=== PATIENT | female | born 1935 | race Caucasian/White ===

== ENCOUNTER 2016-10-08 06:53 | Emergency (ER) | payer MEDICARE ==
[~2016-10-08] VITALS: Ht 165.1 cm; Wt 72.1 kg
[~2016-10-08 06:53] MED LIST: ADVAIR DISK28 PUFFS IN; BACLOFEN 10MG T10 MG PO; CHLORTHALIDONE50 MG PO; CIPRO 500MG TA500 MG PO; DEXAMETHASONE 4M4 MG OR; DSS250 MG PO; DUONEB 3 MG/3 ML3 ML IH; FIORICET 325 MG1 TAB PO; HYDROCHLOROTH12.5 M1 PO; LASIX40 MG PO; LIBRAX 5 MG-2.51 CAP PO; LISINOPRIL 5MG T5 MG PO; LISINOPRIL40 MG PO; MACROBID 100MG100 M1 PO; MACROBID 100MG100 MG PO; MEDROL 4MG. DOSE4 MG PO; MUCINEX600 M1 PO; NASACORT A55 MCG/Act NS; NEXIUM40 MG PO; PROAIR HFA0.09 MG/AC IH; PROMETHAZINE HC25 M1 PO; PROZAC 20MG CAP20 MG PO; PROZAC20 MG PO; PROZAC40 MG PO; SALMETEROL-F28 PUFF1 IN; ULTRACET 325 MG1 TAB PO; ZESTRIL 5MG TABL5 MG PO
--- NOTE | 2016-10-08 07:16 | Emergency Room Report ---
History of Present Illness Time Seen by MD Hutton Presenting Problem in Triage Pt arrived:Wheelchair Presenting Problem:BODY ACHES AND COUGH. 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 N Clinical Suspician of Infection? N Mental Status: 1 - Regular (Normal Baseline) Sepsis Risk:Low Sepsis Risk Have you (or family members/close friends) recently traveled outside the [place]? N If Yes, where/when: Have you had exposure to infectious disease within the past month? TB? Other? 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 fever or rash and no hemoptysis with no chest pain over the last few days Cardiac Chest Pain Chest pain indicative of cardiac No Timing/Duration this evening Severity moderate ALLERGIES Coded Allergies: Penicillins (Severe, [id number]/THROAT 12/09/15) codeine (NA-DIARRHEA 12/09/15) Home Medications Reported Medications Fluoxetine Hcl (Prozac) 40 MG PO DAILY Lisinopril (Zestril 5MG Tablet) 5 MG PO DAILY Albuterol Sulfate (Proair Hfa) 2 PUFFS IH QIDP PRN sob Esomeprazole Magnesium (Nexium 40MG Cap) 40 MG PO DAILY Salmeterol 50/Fluticasone 500 (Advair 500-50 Diskus) 1 PUFF IN BID History Medical History General CAD? No Angina: No PR: No Hypertension? Yes Hyperlipidemia? No CHF? No DVT? No PE? No COPD? No Asthma? Yes Anemia? No GERD? No Gastric ulcers? Yes GI Bleed? No Hernia? Yes Thyroid Problems? No Hypothyroidism? No CVA? No Seizures? No Diabetes? No Renal Insuffiency? Yes End Stage Renal Disease? No UTI? Yes Stones? No GB Disease: No Nephritic Syndrome? No Asplenia? No Hepatitis? No Sickle Cell Disease? No Arthritis? Yes Migraines? No Cataracts? No Glaucoma? No MRSA? No HIV? No TB? No Anxiety? No Depression? No Cancer? Yes Site: BREAST Immunization Hx DT/Tetanus > 10 Years Ago Flu 2012-FSN Pneumonia Received In Past Surgical Hx Previous Surgery?Y D & C BREAST SURGERY- L BRAIN TUMOR Family History Family Hx Diabetes No CAD No Hypertension Yes Hyperlipidemia No Cancer No TB No Social History Smoking Hx Smoker: Never Smoker Tobacco: No Are you/the child exposed to second-hand smoke: No Alcohol Alcohol: No Drugs none Review of Systems All Other Systems Reviewed and Negative Constitutional denies fever Eyes denies drainage ENT denies: ear pain, epistaxis, throat pain. Respiratory cough, denies shortness of breath, denies wheezing Cardiovascular denies chest pain, denies palpitations, denies syncope Gastrointestinal denies abdominal pain, denies diarrhea, denies vomiting Genitourinary denies: dysuria, frequency, hesitancy, hematuria. Musculoskeletal denies back pain, denies joint pain, denies neck pain Skin denies rash Psychiatric/Neurological denies headache, denies seizure Physical Exam Vital Signs Vital Signs Date Time Temp Pulse Resp B/P Pulse O2 O2 Flow FiO2 Ox Delivery Rate 10/08 0654 99.6 84 20 158/72 95 2 - WBC >12,000 or <4,000 or 10% bands? 2 or more SIRS Criteria Met? B/P:158/72 MAP:100 Creatinine >2.0? UA output<0.5ml/kg/hr for 2 hrs? Platelet count >100,000? Lactate >2.0mmol/1? INR >1.2 or PTT > than 60 sec? Evidence of Organ Dysfunction? Provider documented clinical suspician of infection? N Sepsis Criteria Count: 1 Sepsis Risk: Low Sepsis Risk General Appearance no apparent distress Eye Exam - bilateral eye PERRL, bilateral eye EOMI Ear, Nose, Throat normal ENT inspection Neck supple Respiratory Status No: respiratory distress. Lung Sounds bilateral: rhonchi. Cardiovascular regular rate/rhythm, systolic murmur Peripheral Pulses Pulses normal Yes Gastrointestinal soft Extremities no calf tenderness, pedal edema Strength 4 Upper Ext (L), 4 Upper Ext (R), 4 Lower Ext (L), 4 Lower Ext (R) Neurologic alert, drug and alcohol counsellor II-XII nml as tested, no motor/sensory deficits Reflexes Reflexes normal No Mental status normal mood/affect Skin intact Medical Decision Making LABS/Meds/Orders Pt receiving controlled substance in ED? No Results/Orders Laboratory Tests 10/08/16 0655: Influenza Type A Ag NOT DETECTED, Influenza Type B Ag NOT DETECTED Orders Procedure Date/time Status INFLUENZA A&B ANTIGENS 10/08 713 Complete XRAY/CT/US XRAY/CT/US XRAY chest XR interpretation by reviewed by me Xray Results abnormal Departure Departure Time of Disposition 08 Disposition DC Home or Self Care(routine) Clinical Impression Primary Impression: Bronchitis Condition STABLE Referrals Steve Angel MD (Family) Patient Instructions DI for Cough -- Adult Additional Instructions use meds and see pcp for follow up Discharge Counseling Counseled pt/family regarding diagnosis, test results, medications/RX, follow up needs Prescriptions Current Visit Scripts Prednisone (Prednisone 20MG) 20 MG PO BID #10 TAB BENZONATATE (Benzonatate) 100 MG PO TID #15 CAP Azithromycin (Zithromycin (Z-DEEDEE) 250MG Tab) 250 MG PO DAILY #6 TAB TAKE TWO (2) TABLETS ON DAY 1, THEN ONE (1) TABLET DAY #2 THRU #5 ED Critical Care Critical Care No at 0819
--- NOTE | 2016-10-08 07:16 | Emergency Room Report ---
History of Present Illness Time Seen by MD Hutton Presenting Problem in Triage Pt arrived:Wheelchair Presenting Problem:BODY ACHES AND COUGH. 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 N Clinical Suspician of Infection? N Mental Status: 1 - Regular (Normal Baseline) Sepsis Risk:Low Sepsis Risk Have you (or family members/close friends) recently traveled outside the [place]? N If Yes, where/when: Have you had exposure to infectious disease within the past month? TB? Other? Specify: Source patient, RN notes reviewed, family, old records Exam Limitations no limitations Comment first front ventilator cough and achey with no fever or rash and no hemoptysis with no chest pain over the last few days Cardiac Chest Pain Chest pain indicative of cardiac No Timing/Duration this evening Severity moderate ALLERGIES Coded Allergies: Penicillins (Severe, G-[id number]/THROAT 12/09/15) codeine (NA-DIARRHEA 12/09/15) Home Medications Reported Medications Fluoxetine Hcl (Prozac) 40 MG PO DAILY Lisinopril (Zestril 5MG Tablet) 5 MG PO DAILY Albuterol Sulfate (Proair Hfa) 2 PUFFS IH QIDP PRN sob Esomeprazole Magnesium (Nexium 40MG Cap) 40 MG PO DAILY Salmeterol 50/Fluticasone 500 (Advair 500-50 Diskus) 1 PUFF IN BID History Medical History General CAD? No Angina: No [place]: No Hypertension? Yes Hyperlipidemia? No CHF? No DVT? No PE? No COPD? No Asthma? Yes Anemia? No GERD? No Gastric ulcers? Yes GI Bleed? No Hernia? Yes Thyroid Problems? No Hypothyroidism? No CVA? No Seizures? No Diabetes? No Renal Insuffiency? Yes End Stage Renal Disease? No UTI? Yes Stones? No GB Disease: No Nephritic Syndrome? No Asplenia? No Hepatitis? No Sickle Cell Disease? No Arthritis? Yes Migraines? No Cataracts? No Glaucoma? No MRSA? No HIV? No TB? No Anxiety? No Depression? No Cancer? Yes Site: BREAST Immunization Hx DT/Tetanus > 10 Years Ago Flu 2012-FSN Pneumonia Received In Past Surgical Hx Previous Surgery?Y D & C BREAST SURGERY- L BRAIN TUMOR Family History Family Hx Diabetes No CAD No Hypertension Yes Hyperlipidemia No Cancer No TB No Social History Smoking Hx Smoker: Never Smoker Tobacco: No Are you/the child exposed to second-hand smoke: No Alcohol Alcohol: No Drugs none Review of Systems All Other Systems Reviewed and Negative Constitutional denies fever Eyes denies drainage ENT denies: ear pain, epistaxis, throat pain. Respiratory cough, denies shortness of breath, denies wheezing Cardiovascular denies chest pain, denies palpitations, denies syncope Gastrointestinal denies abdominal pain, denies diarrhea, denies vomiting Genitourinary denies: dysuria, frequency, hesitancy, hematuria. Musculoskeletal denies back pain, denies joint pain, denies neck pain Skin denies rash Psychiatric/Neurological denies headache, denies seizure Physical Exam Vital Signs Vital Signs Date Time Temp Pulse Resp B/P Pulse O2 O2 Flow FiO2 Ox Delivery Rate 10/08 0654 99.6 84 20 158/72 95 2 - WBC >12,000 or <4,000 or 10% bands? 2 or more SIRS Criteria Met? B/P:158/72 MAP:100 Creatinine >2.0? UA output<0.5ml/kg/hr for 2 hrs? Platelet count >100,000? Lactate >2.0mmol/1? INR >1.2 or PTT > than 60 sec? Evidence of Organ Dysfunction? Provider documented clinical suspician of infection? N Sepsis Criteria Count: 1 Sepsis Risk: Low Sepsis Risk General Appearance no apparent distress Eye Exam - bilateral eye PERRL, bilateral eye EOMI Ear, Nose, Throat normal ENT inspection Neck supple Respiratory Status No: respiratory distress. Lung Sounds bilateral: rhonchi. Cardiovascular regular rate/rhythm, systolic murmur Peripheral Pulses Pulses normal Yes Gastrointestinal soft Extremities no calf tenderness, pedal edema Strength 4 Upper Ext (L), 4 Upper Ext (R), 4 Lower Ext (L), 4 Lower Ext (R) Neurologic alert, attending psychiatrist II-XII nml as tested, no motor/sensory deficits Reflexes Reflexes normal No Mental status normal mood/affect Skin intact Medical Decision Making LABS/Meds/Orders Pt receiving controlled substance in ED? No Results/Orders Laboratory Tests 10/08/16 0655: Influenza Type A Ag NOT DETECTED, Influenza Type B Ag NOT DETECTED Orders Procedure Date/time Status INFLUENZA A&B ANTIGENS 10/08 713 Complete XRAY/CT/US XRAY/CT/US XRAY chest XR interpretation by reviewed by me Xray Results abnormal Departure Departure Time of Disposition 08 Disposition DC Home or Self Care(routine) Clinical Impression Primary Impression: Bronchitis Condition STABLE Referrals Steve Angel MD (Family) Patient Instructions DI for Cough -- Adult Additional Instructions use meds and see pcp for follow up Discharge Counseling Counseled pt/family regarding diagnosis, test results, medications/RX, follow up needs Prescriptions Current Visit Scripts Prednisone (Prednisone 20MG) 20 MG PO BID #10 TAB BENZONATATE (Benzonatate) 100 MG PO TID #15 CAP Azithromycin (Zithromycin (Z-DEEDEE) 250MG Tab) 250 MG PO DAILY #6 TAB TAKE TWO (2) TABLETS ON DAY 1, THEN ONE (1) TABLET DAY #2 THRU #5 ED Critical Care Critical Care No at 0819
--- NOTE | 2016-10-08 08:17 | RADIOLOGY REPORT PS360 ---
CHEST(2 VIEWS-NOT PORTABLE) COMPARISON: PA and lateral chest 12/01/2015 HISTORY: Shortness of breath, cough TECHNIQUE: PA and lateral chest FINDINGS: There are mild emphysematous changes seen with mild hyperexpansion lung alvarez and flattening of the hemidiaphragms. Again noted are multiple surgical clips left axilla. The lung alvarez are clear of active infiltrate, there may be minimal post inflammatory scarring at the right base. There is borderline cardio megaly but there is no significant pulmonary congestion. There is no pleural fluid. There is generalized osteopenia the thoracic spine by see no compression fracture. IMPRESSION: Mild cardio megaly and mild COPD, no acute chest pathology noted
[2016-10-08] MEDS ORDERED: PREDNISONE 20MG20 MG PO (08:19)
[2016-10-08] MEDS ORDERED: TESSALON PERLE100 MG PO (08:19)
[2016-10-08] MEDS ORDERED: ZITHROMAX Z PA250 MG PO (08:19)
[2016-10-08 09:07] VITALS: BP 178/84
== END 2016-10-08 09:14 | disposition home or self-care (01) ==
LOC: ER 06:53
DX: J20.9 Acute bronchitis, unspecified (principal); I10 Essential (primary) hypertension

== ENCOUNTER → 2017-02-12 | Outpatient (CLI) | payer MEDICARE ==
[~2017-02-12] MED LIST changes: +PREDNISONE 20MG20 MG PO; +TESSALON PERLE100 MG PO; +ZITHROMAX Z PA250 MG PO
[2017-02-12 14:31] LABS: HEMOGLOBIN 12.5 g/dL (12.2-16.2); LYMPH # 1.7 K/mm3 (0.7-4.5); LYMPH % 35.4 % (10-50.0)
[2017-02-12 14:38] LABS: URINE BILIRUBIN - DIPSTICK NEGATIVE (NEG); URINE BLOOD NEGATIVE (NEG)
[2017-02-12 14:55] LABS: BUN 29 mg/dL (7-18)
[2017-02-12 14:56] LABS: GFR (ESTIMATED) 29 ML/MIN (59-)
[2017-02-13 07:41] LABS: Creatinine, Urine 262.9 mg/dL (Not Estab.); Microalbumin, Urine 86.5 ug/mL (Not Estab.)
[2017-02-13 08:43] LABS: Vitamin D, 25-Hydroxy 39.4 ng/mL (30.0-100.0)
[2017-02-13 12:36] LABS: Calcium, Ionized 5.1 mg/dL (4.5-5.6)
== END ==
LOC: LAB 14:01
PROVIDERS: Internal Medicine Nephrology
DX: N18.3 Chronic kidney disease, stage 3 (moderate) (principal); R82.90 Unspecified abnormal findings in urine

== ENCOUNTER → 2017-05-10 | Outpatient (CLI) | payer MEDICARE ==
[~2017-05-10] MED LIST changes: +FUROSEMIDE 20MG20 MG FT; +ITCHY EYE5 ML OP; +MONTELUKAST SODI5 MG PO; +NEXIUM20 MG PO; +PROZAC40 M1 PO; +SPIRIVA RE2.5 MCG/Ac IH
== END ==
LOC: SL 20:38
DX: G47.33 Obstructive sleep apnea (adult) (pediatric) (principal)

== ENCOUNTER → 2017-05-11 | Outpatient (CLI) | payer MEDICARE ==
[2017-05-11 08:11] LABS: URINE BILIRUBIN - DIPSTICK NEGATIVE (NEG); URINE BLOOD NEGATIVE (NEG)
== END ==
LOC: LAB 07:13
PROVIDERS: Family Medicine
DX: G47.33 Obstructive sleep apnea (adult) (pediatric) (principal); Z01.812 Encounter for preprocedural laboratory examination; R82.90 Unspecified abnormal findings in urine

== ENCOUNTER 2017-07-23 12:54 | Emergency (ER) | payer MEDICARE ==
[~2017-07-23] VITALS: Ht 165.1 cm; Wt 68.0 kg
--- OUTSIDE RECORDS SUMMARY | 2017-07-23 13:43 | External Medical Summary Rpt | CCD ---
Author Author , RUSLAN MERCER Address Unknown Phone [email or web address] Immunization Name Date Rout CVX Reac Dose Comm Prov Is Faci e tion ent ider Refu lity Give sed n Infl 10-2 135 999 Hist D203 No D203 uenz 1-20 oric 45 45 a, 16 al High Info rmat Dose ion - Sour ce Unsp ecif ied
--- OUTSIDE RECORDS SUMMARY | 2017-07-23 13:43 | External Medical Summary Rpt | CCD ---
Author Author , RUSLAN MERCER Address Unknown Phone [email or web address] Immunization Name Date Rout CVX Reac Dose Comm Prov Is Faci e tion ent ider Refu lity Give sed n Infl 10-2 135 999 Hist D203 No D203 uenz 1-20 oric 45 45 a, 16 al High Info rmat Dose ion - Sour ce Unsp ecif ied
--- OUTSIDE RECORDS SUMMARY | 2017-07-23 13:43 | External Medical Summary Rpt | CCD ---
Author Author , RUSLAN Organization RUSLAN Address Unknown Phone [email or web address] Purpose Continuity of Care Document - 02-12-2017 through 2016 Problems Code Diagnosis DOS Provider Status D64.9 ANEMIA, UNSPECIFIED E86.0 DEHYDRATION G93.9 DISORDER OF BRAIN, UNSPECIFIED I63.9 CEREBRAL INFARCTION, UNSPECIFIED J20.9 ACUTE BRONCHITIS, UNSPECIFIED J40 BRONCHITIS, NOT SPECIFIED ACUTE OR CHRONIC J90 PLEURAL EFFUSION, NOT ELSEWHERE CLASSIFIED K57.90 DVRTCLOS OF INTEST, PART UNSP, W/O PERF OR ABSCESS W/O BLEED N28.9 DISORDER OF KIDNEY AND URETER, UNSPECIFIED R53.1 WEAKNESS S00.83XA CONTUSION OF OTHER PART OF HEAD, INITIAL ENCOUNTER S40.011A CONTUSION OF RIGHT SHOULDER, INITIAL ENCOUNTER T81.9XXA UNSPECIFIED COMPLICATIO N OF PROCEDURE, INITIAL ENCOUNTER V76.12 W19.XXXA UNSPECIFIED FALL, INITIAL ENCOUNTER Results Labs Lab Lab Date Result Refere Interp Status Commen Order Detail nces retati t Range on Urinalysis dipstick W Reflex Microscopic panel in Urine (05-11-2017 06:00) Bacteri 1+ O complet a 017 ed [Presen 06:00 ce] in Urine sedimen t by Light microsc opy Hyaline 10-20 NONE complet casts 017 ed [Presen 06:00 ce] in Urine sedimen t by Light microsc opy Mucus 2+ OCC complet [Presen 017 ed ce] in 06:00 Urine sedimen t by Light microsc opy Leukocy 10-20 O complet khalida 017 wbc/hpf ed [#/volu 06:00 me] in Urine Urinalysis dipstick W Reflex Microscopic panel in Urine (05-11-2017 06:00) Appeara CLEAR CLEAR complet nce of 017 ed Urine 06:00 Bilirub NEGATIV NEG complet in 017 E ed [Presen 06:00 ce] in Urine by Test strip Erythro NEGATIV NEG complet cytes 017 E ed [Presen 06:00 ce] in Urine Color YELLOW YELLOW complet of 017 ed Urine 06:00 Ketones NEGATIV NEG complet 017 E ed [Presen 06:00 ce] in Urine by Automat ed test strip Mucus TRACE NEG Abnorma complet [Presen 017 l ed ce] in 06:00 Urine sedimen t by Light microsc opy Nitrite NEGATIV NEG complet 017 E ed [Presen 06:00 ce] in Urine by Test strip Urobili 0.2 NEG complet nogen 017 ed [Presen 06:00 ce] in Urine by Test strip Lipase SerPl-cCnc (03-14-2017 15:06) Lipase 18 U/L 19-63 complet SerPl-c 017 ed Cnc 15:06 Bacteria Ur Cult (03-12-2017 17:19) Bacteri [id number] complet a XXX 017 07 ed Anaerob 17:19 Escheri e+Aerob ghanshyam e Cult coli (organi sm) SCT ECOL ESCHERI GHANSHYAM COLI L CC XXX NOTAP complet VC-aCnc 017 NOT ed 17:19 APPLICA BLE L Bacteria XXX Anaerobe+Aerobe Cult (03-12-2017 13:43) Bacteri [id number] complet a XXX 017 08 ed Anaerob 13:43 Staphyl e+Aerob ococcus e Cult , coagula se negativ e (organi sm) SCT BSCN Coagula se Negativ e Staphyl ococcus species isolate d from one bottle only in a 24 hour period. If workup require d, contact Bacteri ology at [phone]. L Hgb A1c MFr Bld (03-12-2017 06:50) Hgb A1c 6.1 % 4.7-6.0 complet MFr 017 ed Bld 06:50 TSH SerPl DL<=0.005 mIU/L-aCnc (03-12-2017 06:50) TSH 1.30 0.4-4.2 complet SerPl 017 uIU/mL ed DL<=0.0 06:50 05 mIU/L-a Cnc Urinalysis dipstick W Reflex Microscopic panel in Urine (02-12-2017 14:02) Amorpho 2+ NONE complet us 017 ed sedimen 14:02 t [Presen ce] in Urine sedimen t by Light microsc opy Hyaline 20-50 NONE complet casts 017 ed [Presen 14:02 ce] in Urine sedimen t by Light microsc opy Mucus 1+ OCC complet [Presen 017 ed ce] in 14:02 Urine sedimen t by Light microsc opy Leukocy 5-10 O complet khalida 017 wbc/hpf ed [#/volu 14:02 me] in Urine Urinalysis dipstick W Reflex Microscopic panel in Urine (02-12-2017 14:02) Appeara CLEAR CLEAR complet nce of 017 ed Urine 14:02 Bilirub NEGATIV NEG complet in 017 E ed [Presen 14:02 ce] in Urine by Test strip Erythro NEGATIV NEG complet cytes 017 E ed [Presen 14:02 ce] in Urine Color YELLOW YELLOW complet of 017 ed Urine 14:02 Ketones NEGATIV NEG complet 017 E ed [Presen 14:02 ce] in Urine by Automat ed test strip Mucus TRACE NEG Abnorma complet [Presen 017 l ed ce] in 14:02 Urine sedimen t by Light microsc opy Nitrite NEGATIV NEG complet 017 E ed [Presen 14:02 ce] in Urine by Test strip Urobili 0.2 NEG complet nogen 017 ed [Presen 14:02 ce] in Urine by Test strip
--- OUTSIDE RECORDS SUMMARY | 2017-07-23 13:43 | External Medical Summary Rpt | CCD ---
Author Author , RUSLAN Organization RUSLAN Address Unknown Phone [email or web address] [facility] Purpose Continuity of Care Document - 02-12-2017 [...] 15:06 Bacteria Ur Cult (03-12-2017 17:19) Bacteri [id number] complet a XXX 017 07 ed Anaerob 17:19 Escheri e+Aerob ghanshyam e Cult coli (organi sm) SCT ECOL ESCHERI GHANSHYAM COLI L CC XXX NOTAP complet VC-aCnc 017 NOT ed 17:19 APPLICA BLE L Bacteria XXX Anaerobe+Aerobe Cult (03-12-2017 13:43) Bacteri [id number] complet a XXX 017 08 ed Anaerob [...]
--- OUTSIDE RECORDS SUMMARY | 2017-07-23 13:44 | External Medical Summary Rpt ---
Author Author RUSLAN Villaseñor, [employer] Organization [employer] Address Unknown Phone Unavailable Results Urinalysis dipstick W Reflex Microscopic panel in Urine Observa Value Referen Units Interpr Notes Date tion ce etation Range Appeara CLEAR CLEAR No No No Sep 22 nce of informa informa informa 2017 Urine tion in tion in tion in 6:00 AM source source source data data data Bacteri 1+ O No No No May 11 a informa informa informa 2016 [Presen tion in tion in tion in 6:00 AM ce] in source source source Urine data data data sedimen t by Light microsc opy Bilirub NEGATIV NEG No No No May 11 in E informa informa informa 2016 [Presen tion in tion in tion in 6:00 AM ce] in source source source Urine data data data by Test strip Erythro NEGATIV NEG No No No May 11 cytes E informa informa informa 2016 [Presen tion in tion in tion in 6:00 AM ce] in source source source Urine data data data Color YELLOW YELLOW No No No Sep 22 of informa informa informa 2017 Urine tion in tion in tion in 6:00 AM source source source data data data Glucose NEG No No No May 11 [Mass/vol informati informati informati 2017 6:00 ume] in on in on in on in AM Urine by source source source Test data data data strip Hyaline 10-20 NONE #/lpf No No May 11 casts informa informa 2016 [Presen tion in tion in 6:00 AM ce] in source source Urine data data sedimen t by Light microsc opy Ketones NEGATIV NEG mg/dL No No May 11 E informa informa 2017 [Presen tion in tion in 6:00 AM ce] in source source Urine data data by Automat ed test strip Mucus TRACE NEG No Abnorma No May 11 [Presen informa l informa 2016 ce] in tion in tion in 6:00 AM Urine source source sedimen data data t by Light microsc opy Mucus 2+ OCC No No No Sep 22 [Presen informa informa informa 2016 ce] in tion in tion in tion in 6:00 AM Urine source source source sedimen data data data t by Light microsc opy Nitrite NEGATIV NEG No No No Sep 22 E informa informa informa 2016 [Presen tion in tion in tion in 6:00 AM ce] in source source source Urine data data data by Test strip pH of 5.0 - 8.5 No Normal No Sep 22 Urine informati informati 2017 6:00 on in on in AM source source data data Protein NEG mg/dL No No Sep 22 [Mass/vol informati informati 2017 6:00 ume] in on in on in AM Urine by source source Automated data data test strip Specific 1.005 - No Normal No Sep 22 gravity 1.030 informati informati 2017 6:00 of Urine on in on in AM source source data data Urobili 0.2 NEG E.U./dL No No Sep 22 nogen informa informa 2016 [Presen tion in tion in 6:00 AM ce] in source source Urine data data by Test strip Leukocy [10 O wbc/hpf No No Sep 22 khalida wbc/hpf informa informa 2016 [#/volu ; 20 tion in tion in 6:00 AM me] in wbc/hpf source source Urine ] data data Urinalysis dipstick W Reflex Microscopic panel in Urine Observa Value Referen Units Interpr Notes Date tion ce etation Range Appeara CLEAR CLEAR No No No Sep 22 nce of informa informa informa 2017 Urine tion in tion in tion in 6:00 AM source source source data data data Bilirub NEGATIV NEG No No No Sep 22 in E informa informa informa 2016 [Presen tion in tion in tion in 6:00 AM ce] in source source source Urine data data data by Test strip Erythro NEGATIV NEG No No No Sep 22 cytes E informa informa informa 2017 [Presen tion in tion in tion in 6:00 AM ce] in source source source Urine data data data Color YELLOW YELLOW No No No Sep 22 of informa informa informa 2016 Urine tion in tion in tion in 6:00 AM source source source data data data Glucose NEG No No No Sep [Mass/vol informati informati informati 2016 6:00 ume] in on in on in on in AM Urine by source source source Test data data data strip Ketones NEGATIV NEG mg/dL No No May 11 E informa informa 2016 [Presen tion in tion in 6:00 AM ce] in source source Urine data data by Automat ed test strip Mucus TRACE NEG No Abnorma No May 11 [Presen informa l informa 2016 ce] in tion in tion in 6:00 AM Urine source source sedimen data data t by Light microsc opy Nitrite NEGATIV NEG No No No May 11 E informa informa informa 2016 [Presen tion in tion in tion in 6:00 AM ce] in source source source Urine data data data by Test strip pH of 5.0 - 8.5 No Normal No May 11 Urine informati informati 2016 6:00 on in on in AM source source data data Protein NEG mg/dL No No Sep [Mass/vol informati informati 2016 6:00 ume] in on in on in AM Urine by source source Automated data data test strip Specific 1.005 - No Normal No May 11 gravity 1.030 informati informati 2016 6:00 of Urine on in on in AM source source data data Urobili 0.2 NEG E.U./dL No No May 11 nogen informa informa 2016 [Presen tion in tion in 6:00 AM ce] in source source Urine data data by Test strip Comprehensive metabolic 2000 panel in Serum or Plasma Observa Value Referen Units Interpr Notes Date tion ce etation Range Albumin/G 1.1 - 1.8 No Low No Mar 24 lobulin informati informati 2016 2:15 [Mass on in on in AM ratio] in source source Serum or data data Plasma Albumin 3.4 - 5.0 gm/dL Low No Mar 24 [Mass/vol informati 2016 2:15 ume] in on in AM Serum or source Plasma data Alkaline 46 - 116 U/L Normal No Mar 24 phosphata informati 2016 2:15 se on in AM [Enzymati source c data activity/ volume] in Serum or Plasma Bilirubin 0.2 - 1.0 mg/dL Normal No Mar 24 .total informati 2016 2:15 [Mass/vol on in AM ume] in source Serum or data Plasma Urea 7 - 18 mg/dL High No Mar 24 nitrogen informati 2017 2:15 [Mass/vol on in AM ume] in source Serum or data Plasma Calcium 8.5 - mg/dL Normal No Mar 24 [Mass/vol 10.1 informati 2017 2:15 ume] in on in AM Serum or source Plasma data Chloride 98 - 107 mmoL/L Normal No Mar 24 [Moles/vo informati 2017 2:15 lume] in on in AM Serum or source Plasma data Carbon 21.0 - mmoL/L Normal No Mar 24 dioxide, 32.0 informati 2016 2:15 total on in AM [Moles/vo source lume] in data Serum or Plasma Creatinin 0.55 - mg/dL High No Mar 24 e 1.02 informati 2016 2:15 [Mass/vol on in AM ume] in source Serum or data Plasma Creatinin 50 - 200 ML/MIN Low No Mar 24 e renal informati 2016 2:15 clearance on in AM source predicted data by Cockcroft -Gault formula Estimated 59- ML/MIN Low REFERENCE Mar 24 RANGE: 2017 2:15 glomerula >60 AM r ML/MIN/1. filtratio 73 SQUARE n rate METERSIf (GF this patient is -A merican, then multiply theresult by 1.210. Globulin 1.3 - 3.2 gm/dL High No Mar 24 [Mass/vol informati 2016 2:15 ume] in on in AM Serum source data Glucose 74 - 106 mg/dL High No Mar 24 [Mass/vol informati 2017 2:15 ume] in on in AM Serum or source Plasma data Potassium 3.5 - 5.1 mmoL/L Normal No Mar 24 informati 2016 2:15 [Moles/vo on in AM lume] in source Serum or data Plasma Sodium 136 - 145 mmoL/L Normal No Mar 24 [Moles/vo informati 2017 2:15 lume] in on in AM Serum or source Plasma data Aspartate 15 - 37 U/L Normal No Mar 24 informati 2017 2:15 aminotran on in AM sferase source [Enzymati data c activity/ volume] in Serum or Plasma Alanine 12 - 78 U/L Normal No Mar 24 aminotran inform2016 2:15 sferase on in AM [Enzymati source c data activity/ volume] in Serum or Plasma Protein 6.4 - 8.2 gm/dL Normal No Mar 24 [Mass/vol inform2016 2:15 ume] in on in AM Serum or source Plasma data CBC W Auto Differential panel in Blood Observa Value Referen Units Interpr Notes Date tion ce etation Range Basophils 0 - 0.2 K/MM3 Normal No Mar 24 inform2016 2:15 [#/volume on in AM ] in source Blood by data Automated count Basophils 0.1 - 2.0 % Normal No Mar 24 /100 informati 2016 2:15 leukocyte on in AM s in source Blood by data Automated count Eosinophi 0.0 - 0.4 K/mm3 Normal No Mar 24 ls 2016 2:15 [#/volume on in AM ] in source Blood by data Automated count Eosinophi 0.1 - % Normal No Mar 24 ls/100 12.0 informati 2016 2:15 leukocyte on in AM s in source Blood by data Automated count Granulocy 1.8 - 7.8 K/mm3 Normal No Mar 24 khalida 2016 2:15 [#/volume on in AM ] in source Blood by data Automated count Granulocy 37.0 - % Normal No Mar 24 khalida/100 80.0 inform2016 2:15 leukocyte on in AM s in source Blood by data Automated count Hematocri 37.0 - % Normal No Mar 24 t [Volume 47.0 2016 2:15 on in AM Fraction] source of Blood data Hemoglobi 12.2 - g/dL Normal No Mar 24 n 16.2 2016 2:15 [Mass/vol on in AM ume] in source Blood data Lymphocyt 0.7 - 4.5 K/mm3 Normal No Mar 24 es informati 2016 2:15 [#/volume on in AM ] in source Unspecifi data ed specimen by Automated count Lymphocyt 10 - 50.0 % Normal No Mar 24 es 2016 2:15 [#/volume on in AM ] in source Unspecifi data ed specimen by Automated count Erythrocy 27 - 31.2 pg Normal No Mar 24 te mean ati 2016 2:15 corpuscul on in AM ar source hemoglobi data n [Entitic mass] Erythrocy 31.8 - g/dl Low No Mar 24 te mean 35.4 informati 2016 2:15 corpuscul on in AM ar source hemoglobi data n concentra tion [Mass/vol ume] by Automated count Erythrocy 82.2 - fl Normal No Mar 24 te mean 97.8 informati 2016 2:15 corpuscul on in AM ar volume source [Entitic data volume] by Automated count Monocytes 0.1 - 1.0 K/mm3 Normal No Mar 24 informati 2016 2:15 [#/volume on in AM ] in source Blood by data Automated count Monocytes 1.7 - 9.3 % Normal No Mar 24 /100 informati 2017 2:15 leukocyte on in AM s in source Blood by data Automated count Platelet 7.4 - fl Low No Mar 24 mean 10.4 informati 2016 2:15 volume on in AM [Entitic source volume] data in Blood by Automated count Platelets 142 - 424 K/mm3 Normal No Mar 24 informati 2016 2:15 [#/volume on in AM ] in source Blood data Erythrocy 4.2 - 5.4 M/mm3 Low No Mar 24 khalida informati 2016 2:15 [#/volume on in AM ] in source Amniotic data fluid Erythrocy 11.5 - % Normal No Mar 24 te 17.5 informati 2016 2:15 distribut on in AM ion width source [Entitic data volume] by Automated count Leukocyte 4.8 - K/MM3 Normal No Mar 24 s 10.8 informati 2016 2:15 [#/volume on in AM ] in source Blood data Comprehensive metabolic 2000 panel in Serum or Plasma Observa Value Referen Units Interpr Notes Date tion ce etation Range Albumin/G 1.1 - 1.8 No Low No Mar 11 lobulin informati informati 2016 6:35 [Mass on in on in AM ratio] in source source Serum or data data Plasma Albumin 3.4 - 5.0 gm/dL Normal No Mar 11 [Mass/vol informati 2016 6:35 ume] in on in AM Serum or source Plasma data Alkaline 46 - 116 U/L Normal No Mar 11 phosphata informati 2016 6:35 se on in AM [Enzymati source c data activity/ volume] in Serum or Plasma Bilirubin 0.2 - 1.0 mg/dL Normal No Mar 11 .total informati 2017 6:35 [Mass/vol on in AM ume] in source Serum or data Plasma Urea 7 - 18 mg/dL High No Mar 11 nitrogen informati 2016 6:35 [Mass/vol on in AM ume] in source Serum or data Plasma Calcium 8.5 - mg/dL Normal No Mar 11 [Mass/vol 10.1 informati 2016 6:35 ume] in on in AM Serum or source Plasma data Chloride 98 - 107 mmoL/L Normal No Mar 11 [Moles/vo informati 2016 6:35 lume] in on in AM Serum or source Plasma data Carbon 21.0 - mmoL/L Normal No Mar 11 dioxide, 32.0 informati 2017 6:35 total on in AM [Moles/vo source lume] in data Serum or Plasma Creatinin 0.55 - mg/dL High No Mar 11 e 1.02 informati 2016 6:35 [Mass/vol on in AM ume] in source Serum or data Plasma Creatinin 50 - 200 ML/MIN Low No Mar 11 e renal informati 2016 6:35 clearance on in AM source predicted data by Cockcroft -Gault formula Estimated 59- ML/MIN Low REFERENCE Mar 11 RANGE: 2017 6:35 glomerula >60 AM r ML/MIN/1. filtratio 73 SQUARE n rate METERSIf (GF this patient is -A merican, then multiply theresult by 1.210. Globulin 1.3 - 3.2 gm/dL High No Mar 11 [Mass/vol informati 2016 6:35 ume] in on in AM Serum source data Glucose 74 - 106 mg/dL High No Mar 11 [Mass/vol informati 2016 6:35 ume] in on in AM Serum or source Plasma data Potassium 3.5 - 5.1 mmoL/L Normal No Mar 11 informati 2016 6:35 [Moles/vo on in AM lume] in source Serum or data Plasma Sodium 136 - 145 mmoL/L Normal No Mar 11 [Moles/vo informati 2016 6:35 lume] in on in AM Serum or source Plasma data Aspartate 15 - 37 U/L High No Mar 11 informati 2016 6:35 aminotran on in AM sferase source [Enzymati data c activity/ volume] in Serum or Plasma Alanine 12 - 78 U/L Normal No Mar 11 aminotran informati 2016 6:35 sferase on in AM [Enzymati source c data activity/ volume] in Serum or Plasma Protein 6.4 - 8.2 gm/dL Normal No Mar 11 [Mass/vol informati 2016 6:35 ume] in on in AM Serum or source Plasma data CBC W Auto Differential panel in Blood Observa Value Referen Units Interpr Notes Date tion ce etation Range Granulocy 1.8 - 7.8 K/mm3 Normal No Mar 11 khalida informati 2016 6:35 [#/volume on in AM ] in source Blood by data Automated count Granulocy 37.0 - % Normal No Mar 11 khalida/100 80.0 informati 2017 6:35 leukocyte on in AM s in source Blood by data Automated count Hematocri 37.0 - % Low No Mar 11 t [Volume 47.0 informati 2016 6:35 on in AM Fraction] source of Blood data Hemoglobi 12.2 - g/dL Low No Mar 11 n 16.2 informati 2016 6:35 [Mass/vol on in AM ume] in source Blood data Lymphocyt 0.7 - 4.5 K/mm3 Normal No Mar 11 es informati 2016 6:35 [#/volume on in AM ] in source Unspecifi data ed specimen by Automated count Lymphocyt 10 - 50.0 % Normal No Mar 11 es informati 2016 6:35 [#/volume on in AM ] in source Unspecifi data ed specimen by Automated count Erythrocy 27 - 31.2 pg Normal No Mar 11 te mean informati 2016 6:35 corpuscul on in AM ar source hemoglobi data n [Entitic mass] Erythrocy 31.8 - g/dl Low No Mar 11 te mean 35.4 informati 2016 6:35 corpuscul on in AM ar source hemoglobi data n concentra tion [Mass/vol ume] by Automated count Erythrocy 82.2 - fL Normal No Mar 11 te mean 97.8 informati 2016 6:35 corpuscul on in AM ar volume source [Entitic data volume] by Automated count Monocytes 0.1 - 1.0 K/mm3 Normal No Mar 11 informati 2016 6:35 [#/volume on in AM ] in source Blood by data Automated count Monocytes 1.7 - 9.3 % Normal No Mar 11 / informati 2016 6:35 leukocyte on in AM s in source Blood by data Automated count Platelets 142 - 424 K/mm3 Normal No Mar 11 informati 2016 6:35 [#/volume on in AM ] in source Blood data Erythrocy 4.2 - 5.4 M/mm3 Low No Mar 11 khalida informati 2016 6:35 [#/volume on in AM ] in source Amniotic data fluid Erythrocy 11.5 - % Normal No Mar 11 te 17.5 informati 2016 6:35 distribut on in AM ion width source [Entitic data volume] by Automated count Leukocyte 4.8 - K/mm3 Normal No Mar 11 s 10.8 informati 2016 6:35 [#/volume on in AM ] in source Blood data Glucose [Mass/volume] in Capillary blood by Glucometer Observa Value Referen Units Interpr Notes Date tion ce etation Range Glucose 70 - 110 mg/dl Normal No Mar 11 [Mass/vol informati 2016 6:30 ume] in on in AM Capillary source blood by data Glucomete r Parathyrin.intact [Mass/volume] in Serum or Plasma Observa Value Referen Units Interpr Notes Date tion ce etation Range Parathyri 15 - 65 pg/mL High Performed Feb 12 n.intact at: CB 2017 2:02 [Mass/vol - [facility] PM ume] in Serum or [place] [id number] Plasma 0 [place], [place] [id number] Branch Specialist: Luis Du PhD, Phone: [phone] Renal function 2000 panel in Serum or Plasma Observa Value Referen Units Interpr Notes Date tion ce etation Range Albumin 3.4 - 5.0 gm/dL Normal No Feb 12 [Mass/vol informati 2016 2:02 ume] in on in PM Serum or source Plasma data Urea 7 - 18 mg/dL High No Feb 12 nitrogen informati 2017 2:02 [Mass/vol on in PM ume] in source Serum or data Plasma Calcium 8.5 - mg/dL Normal No Feb 12 [Mass/vol 10.1 informati 2017 2:02 ume] in on in PM Serum or source Plasma data Chloride 98 - 107 mmoL/L Normal No Feb 12 [Moles/vo informati 2016 2:02 lume] in on in PM Serum or source Plasma data Carbon 21.0 - mmoL/L Normal No Feb 12 dioxide, 32.0 informati 2017 2:02 total on in PM [Moles/vo source lume] in data Serum or Plasma Creatinin 0.55 - mg/dL High No Feb 12 e 1.02 informati 2017 2:02 [Mass/vol on in PM ume] in source Serum or data Plasma Estimated 59- ML/MIN Low REFERENCE Feb 12 RANGE: 2017 2:02 glomerula >60 PM r ML/MIN/1. filtratio 73 SQUARE n rate METERSIf (GF this patient is -A merican, then multiply theresult by 1.210. Glucose 74 - 106 mg/dL High No Feb 12 [Mass/vol informati 2016 2:02 ume] in on in PM Serum or source Plasma data Potassium 3.5 - 5.1 mmoL/L Normal No Feb 12 informati 2016 2:02 [Moles/vo on in PM lume] in source Serum or data Plasma Sodium 136 - 145 mmoL/L Normal No Feb 12 [Moles/vo informati 2016 2:02 lume] in on in PM Serum or source Plasma data Phosphate 2.4 - 4.9 mg/dL Normal No Feb 12 informati 2016 2:02 [Moles/vo on in PM lume] in source Unspecifi data ed specimen Urate [Mass/volume] in Serum or Plasma Observa Value Referen Units Interpr Notes Date tion ce etation Range Urate 2.6 - 7.2 mg/dL Normal No Feb 12 [Mass/vol informati 2016 2:02 ume] in on in PM Serum or source Plasma data Calcium.ionized [Mass/volume] in Serum or Plasma by Ion-selective membrane electrode (ISE) Observa Value Referen Units Interpr Notes Date tion ce etation Range Calcium.i 4.5 - 5.6 mg/dL No 02/13/17 Feb 12 onized informati 0956:CALC 2017 2:02 [Mass/vol on in IUM PM ume] in source IONIZED Serum or data previousl Plasma by y reported Ion-selec as:ANAHI jonas G002/13/17 membrane electrode 1236:CALC (ISE) IUM IONIZED previousl y reported as: 0956:CALC IUM IONIZED previousl y reported as:ANAHI GPerforme d at: [facility] [id number] Branch Specialist: Luis Du PhD, Phone: [phone] Microalb/Creat Ratio, Randm Ur Observa Value Referen Units Interpr Notes Date tion ce etation Range Microalbu Not ug/mL No No Feb 12 min Estab. informati informati 2017 2:02 [Mass/vol on in on in PM ume] in source source Urine data data Albumin/C 0.0 - No High INFCE Feb 12 reatinine 30.0 informati Result 2017 2:02 [Mass on in Units: PM ratio] in source mg/g Urine data creatPerf ormed at: [email or web address] [place], [place] [id number] Branch Specialist: Luis Du PhD, Phone: [phone] Creatinin Not mg/dL No No Feb 12 e Estab. informati informati 2017 2:02 [Mass/vol on in on in PM ume] in source source Urine data data 25-Hydroxyvitamin D [Mass/volume] in Serum or Plasma Observa Value Referen Units Interpr Notes Date tion ce etation Range 25-Hydrox 30.0 - ng/mL No Vitamin D Feb 12 yvitamin 100.0 informati 2017 2:02 D on in deficienc PM [Mass/vol source y has ume] in data been Serum or defined Plasma by the [place] [facility] e and an Endocrine Society practice guideline as alevel of serum 25-OH vitamin D less than 20 ng/mL (1,2).The Endocrine Society went on to further define vitamin Dinsuffic iency as a level between 21 and 29 ng/mL (2).1. IOM (Institut e of Medicine) . 2010. Dietary reference intakes for calcium and D. [place]: [employer].2. Jennifer MF, [place], Ana Lilia Regan VALENTINE, et al.Evalua tion, treatment , and preventio n of vitamin Ddeficien cy: an Endocrine Society clinical practiceg uideline. JCEM. 2010; 96(7):191 1-30.Perf ormed at: [email or web address] [address] [place], [place] [id number] Branch Specialist: Luis Du PhD, Phone: [phone] Calcium.ionized [Mass/volume] in Serum or Plasma by Ion-selective membrane electrode (ISE) Observa Value Referen Units Interpr Notes Date tion ce etation Range Calcium.i No No No 02/13/17 Feb 12 onized informati informati informati 0956:CALC 2017 2:02 [Mass/vol on in on in on in IUM PM ume] in source source source IONIZED Serum or data data data previousl Plasma by y reported Ion-selec as:PENDIN tive G membrane electrode (ISE) 25-Hydroxyvitamin D [Mass/volume] in Serum or Plasma Observa Value Referen Units Interpr Notes Date tion ce etation Range 25-Hydrox 30.0 - ng/mL No Vitamin D Feb 12 yvitamin 100.0 informati 2016 2:02 D on in deficienc PM [Mass/vol source y has ume] in data been Serum or defined Plasma by the [place] [facility] e and an Endocrine Society practice guideline as alevel of serum 25-OH vitamin D less than 20 ng/mL (1,2).The Endocrine Society went on to further define vitamin Dinsuffic iency as a level between 21 and 29 ng/mL (2).1. IOM (Institut e of Medicine) . 2010. Dietary reference intakes for calcium and D. [place]: [employer].2. Jennifer MF, [place], Ana Lilia Regan VALENTINE, et al.Evalua tion, treatment , and preventio n of vitamin Ddeficien cy: an Endocrine Society clinical practiceg uideline. JCEM. 2010; 96(7):191 1-30.Perf ormed at: CB - [facility] [id number] [place], [place] [id number] Branch Specialist: Luis Du PhD, Phone: [phone] Calcium.ionized [Mass/volume] in Serum or Plasma by Ion-selective membrane electrode (ISE) Observa Value Referen Units Interpr Notes Date tion ce etation Range Calcium.i No No No PENDING Feb 12 onized informati informati informati 2016 2:02 [Mass/vol on in on in on in PM ume] in source source source Serum or data data data Plasma by Ion-selec tive membrane electrode (ISE) 25-Hydroxyvitamin D [Mass/volume] in Serum or Plasma Observa Value Referen Units Interpr Notes Date tion ce etation Range 25-Hydrox 30.0 - ng/mL No Vitamin D Feb 12vitamin 100.0 informati 2016 2:02 D on in deficienc PM [Mass/vol source y has ume] in data been Serum or defined Plasma by the [place] of[place] e and an Endocrine Society practice guideline as alevel of serum 25-OH vitamin D less than 20 ng/mL (1,2).The Endocrine Society went on to further define vitamin Dinsuffic iency as a level between 21 and 29 ng/mL (2).1. IOM (Institut e of Medicine) . 2010. Dietary reference intakes for calcium and D. [place]: [employer].2. Jennifer MF, [place], Ana Lilia Regan VALENTINE, et al.Evalua tion, treatment , and preventio n of vitamin Ddeficien cy: an Endocrine Society clinical practiceg uideline. JCEM. 2010; 96(7):191 1-30.Perf ormed at: CB - [facility] [place] [address] [place], [place] [id number] Branch Specialist: Luis Du PhD, Phone: [phone] Calcium.ionized [Mass/volume] in Serum or Plasma by Ion-selective membrane electrode (ISE) Observa Value Referen Units Interpr Notes Date tion ce etation Range PENDING PENDING 25-Hydroxyvitamin D [Mass/volume] in Serum or Plasma Observa Value Referen Units Interpr Notes Date tion ce etation Range PENDING 25-Hydrox 30.0 - ng/mL No Vitamin D Feb 12vitamin 100.0 informati 2017 2:02 D on in deficienc PM [Mass/vol source y has ume] in data been Serum or defined Plasma by the [place] of[employer]icin e and an Endocrine Society practice guideline as alevel of serum 25-OH vitamin D less than 20 ng/mL (1,2).The Endocrine Society went on to further define vitamin Dinsuffic iency as a level between 21 and 29 ng/mL (2).1. IOM (Institut e of Medicine) . 2010. Dietary reference intakes for calcium and D. [place]: [employer].2. [place], Ana Lilia VALENTINE, et al.Evalua tion, treatment , and preventio n of vitamin Ddeficien cy: an Endocrine Society clinical practiceg uideline. JCEM. 2010; 96(7):191 1-30.Perf ormed at: [facility] [place], [place] [id number] Branch Specialist: Luis Du PhD, Phone: [phone] Calcium.ionized [Mass/volume] in Serum or Plasma by Ion-selective membrane electrode (ISE) Observa Value Referen Units Interpr Notes Date tion ce etation Range 25-Hydroxyvitamin D [Mass/volume] in Serum or Plasma Observa Value Referen Units Interpr Notes Date tion ce etation Range 25-Hydrox 30.0 - ng/mL No Vitamin D Feb 12 yvitamin 100.0 informati 2016 2:02 D on in deficienc PM [Mass/vol source y has ume] in data been Serum or defined Plasma by the [place] [facility] e and an Endocrine Society practice guideline as alevel of serum 25-OH vitamin D less than 20 ng/mL (1,2).The Endocrine Society went on to further define vitamin Dinsuffic iency as a level between 21 and 29 ng/mL (2).1. IOM (Institut e of Medicine) . 2010. Dietary reference intakes for calcium and D. [place]: [employer].2. [place], Ana Lilia VALENTINE, et al.Evalua tion, treatment , and preventio n of vitamin Ddeficien cy: an Endocrine Society clinical practiceg uideline. JCEM. 2010; 96(7):191 1-30.Perf ormed at: [employer] [facility] [address] [place], [place] [id number] Branch Specialist: Luis Du PhD, Phone: [phone] Urinalysis dipstick W Reflex Microscopic panel in Urine Observa Value Referen Units Interpr Notes Date tion ce etation Range Appeara CLEAR CLEAR No No No Feb 12 nce of informa informa informa 2017 Urine tion in tion in tion in 2:02 PM source source source data data data Amorpho 2+ NONE No No No Feb 12 us informa informa informa 2017 sedimen tion in tion in tion in 2:02 PM t source source source [Presen data data data ce] in Urine sedimen t by Light microsc opy Bilirub NEGATIV NEG No No No Feb 12 in E informa informa informa 2017 [Presen tion in tion in tion in 2:02 PM ce] in source source source Urine data data data by Test strip Erythro NEGATIV NEG No No No Feb 12 cytes E informa informa informa 2017 [Presen tion in tion in tion in 2:02 PM ce] in source source source Urine data data data Color YELLOW YELLOW No No No Feb 12 of informa informa informa 2017 Urine tion in tion in tion in 2:02 PM source source source data data data Glucose NEG No No No Feb 12 [Mass/vol informati informati informati 2017 2:02 ume] in on in on in on in PM Urine by source source source Test data data data strip Hyaline 20-50 NONE #/lpf No No Feb 12 casts informa informa 2016 [Presen tion in tion in 2:02 PM ce] in source source Urine data data sedimen t by Light microsc opy Ketones NEGATIV NEG mg/dL No No Feb 12 E informa informa 2016 [Presen tion in tion in 2:02 PM ce] in source source Urine data data by Automat ed test strip Mucus TRACE NEG No Abnorma No Feb 12 [Presen informa l informa 2016 ce] in tion in tion in 2:02 PM Urine source source sedimen data data t by Light microsc opy Mucus 1+ OCC No No No Feb 12 [Presen informa informa informa 2016 ce] in tion in tion in tion in 2:02 PM Urine source source source sedimen data data data t by Light microsc opy Nitrite NEGATIV NEG No No No Feb 12 E informa informa informa 2017 [Presen tion in tion in tion in 2:02 PM ce] in source source source Urine data data data by Test strip pH of 5.0 - 8.5 No Normal No Feb 12 Urine informati informati 2017 2:02 on in on in PM source source data data Protein NEG mg/dL High No Feb 12 [Mass/vol informati 2016 2:02 ume] in on in PM Urine by source Automated data test strip Specific 1.005 - No Normal No Feb 12 gravity 1.030 informati informati 2016 2:02 of Urine on in on in PM source source data data Urobili 0.2 NEG E.U./dL No No Feb 12 nogen informa informa 2016 [Presen tion in tion in 2:02 PM ce] in source source Urine data data by Test strip Leukocy [5 O wbc/hpf No No Feb 12 khalida wbc/hpf informa informa 2016 [#/volu ; 10 tion in tion in 2:02 PM me] in wbc/hpf source source Urine ] data data Urinalysis dipstick W Reflex Microscopic panel in Urine Observa Value Referen Units Interpr Notes Date tion ce etation Range Appeara CLEAR CLEAR No No No Feb 12 nce of informa informa informa 2016 Urine tion in tion in tion in 2:02 PM source source source data data data Bilirub NEGATIV NEG No No No Feb 12 in E informa informa informa 2016 [Presen tion in tion in tion in 2:02 PM ce] in source source source Urine data data data by Test strip Erythro NEGATIV NEG No No No Feb 12 cytes E informa informa informa 2016 [Presen tion in tion in tion in 2:02 PM ce] in source source source Urine data data data Color YELLOW YELLOW No No No Feb 12 of informa informa informa 2016 Urine tion in tion in tion in 2:02 PM source source source data data data Glucose NEG No No No Feb 12 [Mass/vol informati informati informati 2017 2:02 ume] in on in on in on in PM Urine by source source source Test data data data strip Ketones NEGATIV NEG mg/dL No No Feb 12 E informa informa 2016 [Presen tion in tion in 2:02 PM ce] in source source Urine data data by Automat ed test strip Mucus TRACE NEG No Abnorma No Feb 12 [Presen informa l informa 2016 ce] in tion in tion in 2:02 PM Urine source source sedimen data data t by Light microsc opy Nitrite NEGATIV NEG No No No Feb 12 E informa informa inform2016 [Presen tion in tion in tion in 2:02 PM ce] in source source source Urine data data data by Test strip pH of 5.0 - 8.5 No Normal No Feb 12 Urine informati informati 2016 2:02 on in on in PM source source data data Protein NEG mg/dL High No Feb 12 [Mass/vol 2016 2:02 ume] in on in PM Urine by source Automated data test strip Specific 1.005 - No Normal No Feb 12 gravity 1.030 informati informati 2016 2:02 of Urine on in on in PM source source data data Urobili 0.2 NEG E.U./dL No No Feb 12 nogen inform inform2016 [Presen tion in tion in 2:02 PM ce] in source source Urine data data by Test strip CBC W Auto Differential panel in Blood Observa Value Referen Units Interpr Notes Date tion ce etation Range Basophils 0 - 0.2 K/MM3 Normal No Feb 12 inform2016 2:02 [#/volume on in PM ] in source Blood by data Automated count Basophils 0.1 - 2.0 % Normal No Feb 12 /100 informati 2016 2:02 leukocyte on in PM s in source Blood by data Automated count Eosinophi 0.0 - 0.4 K/mm3 Normal No Feb 12 ls ati 2016 2:02 [#/volume on in PM ] in source Blood by data Automated count Eosinophi 0.1 - % Normal No Feb 12 ls/100 12.0 informati 2016 2:02 leukocyte on in PM s in source Blood by data Automated count Granulocy 1.8 - 7.8 K/mm3 Normal No Feb 12 khalida informati 2016 2:02 [#/volume on in PM ] in source Blood by data Automated count Granulocy 37.0 - % Normal No Feb 12 khalida/100 80.0 informati 2016 2:02 leukocyte on in PM s in source Blood by data Automated count Hematocri 37.0 - % Normal No Feb 12 t [Volume 47.0 informati 2016 2:02 on in PM Fraction] source of Blood data Hemoglobi 12.2 - g/dL Normal No Feb 12 n 16.2 informati 2016 2:02 [Mass/vol on in PM ume] in source Blood data Lymphocyt 0.7 - 4.5 K/mm3 Normal No Feb 12 es informati 2016 2:02 [#/volume on in PM ] in source Unspecifi data ed specimen by Automated count Lymphocyt 10 - 50.0 % Normal No Feb 12 es informati 2016 2:02 [#/volume on in PM ] in source Unspecifi data ed specimen by Automated count Erythrocy 27 - 31.2 pg High No Feb 12 te mean informati 2016 2:02 corpuscul on in PM ar source hemoglobi data n [Entitic mass] Erythrocy 31.8 - g/dl Normal No Feb 12 te mean 35.4 informati 2016 2:02 corpuscul on in PM ar source hemoglobi data n concentra tion [Mass/vol ume] by Automated count Erythrocy 82.2 - fl High No Feb 12 te mean 97.8 informati 2016 2:02 corpuscul on in PM ar volume source [Entitic data volume] by Automated count Monocytes 0.1 - 1.0 K/mm3 Normal No Feb 12 informati 2016 2:02 [#/volume on in PM ] in source Blood by data Automated count Monocytes 1.7 - 9.3 % Normal No Feb 12 /100 informati 2017 2:02 leukocyte on in PM s in source Blood by data Automated count Platelet 7.4 - fl Low No Feb 12 mean 10.4 informati 2016 2:02 volume on in PM [Entitic source volume] data in Blood by Automated count Platelets 142 - 424 K/mm3 Normal No Feb 12 informati 2016 2:02 [#/volume on in PM ] in source Blood data Erythrocy 4.2 - 5.4 M/mm3 Low No Feb 12 khalida informati 2017 2:02 [#/volume on in PM ] in source Amniotic data fluid Erythrocy 11.5 - % Normal No Feb 12 te 17.5 informati 2016 2:02 distribut on in PM ion width source [Entitic data volume] by Automated count Leukocyte 4.8 - K/MM3 Normal No Feb 12 s 10.8 informati 2016 2:02 [#/volume on in PM ] in source Blood data
--- OUTSIDE RECORDS SUMMARY | 2017-07-23 13:44 | External Medical Summary Rpt ---
[...] - [facility] PM ume] in Serum or [place] [address] Plasma 0 [place], [place] [id number] Community Health Counselor: Luis Du PhD, Phone: [phone] Renal function 2000 panel in Serum [...] previousl y reported as:ANAHI GPerforme d at: [facility] [address] [id number] Community Health Counselor: Luis Du PhD, Phone: [phone] Microalb/Creat Ratio, Randm Ur Observa Value [...] source mg/g Urine data creatPerf ormed at: [id number] [place], [place] [id number] Community Health Counselor: Luis Du PhD, Phone: [phone] Creatinin Not mg/dL No No Feb [...] been Serum or defined Plasma by the [facility] e and an Endocrine Society practice guideline [...] uideline. JCEM. 2010; 96(7):191 1-30.Perf ormed at: [employer] [address] [place], [place] [id number] Community Health Counselor: Luis Du PhD, Phone: [phone] Calcium.ionized [Mass/volume] in Serum or Plasma [...] been Serum or defined Plasma by the [facility] e and an Endocrine Society practice guideline [...] 96(7):191 1-30.Perf ormed at: CB - [facility] [id number] [place], [place] [id number] Community Health Counselor: Luis Du PhD, Phone: [phone] Calcium.ionized [Mass/volume] in Serum or Plasma [...] been Serum or defined Plasma by the [facility] e and an Endocrine Society practice guideline as alevel of serum 25-OH vitamin D less than 20 ng/mL (1,2).The Endocrine Society went on to further define vitamin Dinsuffic iency as a level between 21 and 29 ng/mL (2).1. IOM (Institut e of Medicine) . 2010. Dietary reference intakes for calcium and D. Marcelino n [place]: [employer].2. Jennifer MF, Sierra [place], Ana Lilia Regan VALENTINE, et al.Evalua tion, treatment , and preventio n of vitamin Ddeficien cy: an Endocrine Society clinical practiceg uideline. JCEM. 2010; 96(7):191 1-30.Perf ormed at: CB - [facility] [place] [address] [place], [place] [id number] Community Health Counselor: Luis Du PhD, Phone: [phone] Calcium.ionized [Mass/volume] in Serum or Plasma [...] been Serum or defined Plasma by the [facility] e and an Endocrine Society practice guideline as alevel of serum 25-OH vitamin D less than 20 ng/mL (1,2).The Endocrine Society went on to further define vitamin Dinsuffic iency as a level between 21 and 29 ng/mL (2).1. IOM (Institut e of Medicine) . 2010. Dietary reference intakes for calcium and D. [place]: [employer].2. Sierra Montoya, Ana Lilia VALENTINE, et al.Evalua tion, treatment , and preventio n of vitamin Ddeficien cy: an Endocrine Society clinical practiceg uideline. JCEM. 2010; 96(7):191 1-30.Perf ormed at: [facility] [place] [place], [place] [id number] Community Health Counselor: Luis Du PhD, Phone: [phone] Calcium.ionized [Mass/volume] in Serum or Plasma [...] been Serum or defined Plasma by the [facility] e and an Endocrine Society practice guideline as alevel of serum 25-OH vitamin D less than 20 ng/mL (1,2).The Endocrine Society went on to further define vitamin Dinsuffic iency as a level between 21 and 29 ng/mL (2).1. IOM (Institut e of Medicine) . 2010. Dietary reference intakes for calcium and D. Marcelino banks [place]: [employer].2. Sierra Montoya, Ana Lilia VALENTINE, et al.Evalua tion, treatment , and preventio n of vitamin Ddeficien cy: an Endocrine Society clinical practiceg uideline. JCEM. 2010; 96(7):191 1-30.Perf ormed at: [employer] [facility] [address] [place], [place] [id number] Community Health Counselor: Luis Du PhD, Phone: [phone] Urinalysis dipstick W Reflex Microscopic panel [...]
--- NOTE | 2017-07-23 17:06 | Emergency Room Report ---
History of Present Illness Time Seen by MD Garrido Presenting Problem in Triage Pt arrived:Walked Presenting Problem:PT REPORTS DRY/HACKY COUGH THAT BEGAN THIS MORNING. Onset of symptoms date/time:07/23/17/ or onset unknown for:MEDICAL HX UNKNOWN Treatment Prior to Arrival: ALBUTEROL NEB TREATMENT, VENTOLIN INHALER, ADVAIR INSIDE SALES ASSISTANT Provided by:SELF Sepsis Risk Assessment: Temp: 98.4 B/P: 155/85 MAP: 106 Pulse: 72 Resp: 22 Recent fever? N Clinical Suspician of Infection? N Mental Status: 1 - Regular (Normal Baseline) Sepsis Risk:Possible Sepsis Risk Have you (or family members/close friends) recently traveled outside the [place]? N If Yes, where/when: Have you had exposure to infectious disease within the past month? N TB? Other? Specify: Source patient, RN notes reviewed, family, old records Exam Limitations no limitations Comment pt with cough after eating lunch with dec fever or prod cough and has no known dysphagia Cardiac Chest Pain Chest pain indicative of cardiac No Timing/Duration this evening Severity moderate ALLERGIES Coded Allergies: Penicillins (Severe, I-UFATCF-NLCD/THROAT 12/09/15) codeine (NA-DIARRHEA 12/09/15) Home Medications Reported Medications Lisinopril (Zestril 5MG Tablet) 10 MG PO DAILY Albuterol Sulfate (Proair Hfa) 2 PUFFS IH QIDP PRN sob Salmeterol 50/Fluticasone 500 (Advair 500-50 Diskus) 1 PUFF IN BID Tiotropium Kirkman (Spiriva Respimat) 2.5 MCG IH BID #4 Fluoxetine HCl (Prozac) 40 MG PO DAILY #30 Montelukast Sodium 5 MG PO DAILY #30 Furosemide (Furosemide) 20 MG FT DAILY #30 Esomeprazole Magnesium (Nexium) 20 MG PO DAILY History Medical History General CAD? No Angina: No MT: No Hypertension? Yes Hyperlipidemia? No CHF? No DVT? No PE? No COPD? No Asthma? Yes Anemia? No GERD? No Gastric ulcers? Yes GI Bleed? No Hernia? Yes Thyroid Problems? No Hypothyroidism? No CVA? No Seizures? No Diabetes? No Renal Insuffiency? Yes End Stage Renal Disease? No UTI? Yes Stones? No GB Disease: No Nephritic Syndrome? No Asplenia? No Hepatitis? No Sickle Cell Disease? No Arthritis? Yes Migraines? No Cataracts? No Glaucoma? No MRSA? No HIV? No TB? No Anxiety? No Depression? No Cancer? 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 Respiratory see HPI, cough, denies shortness of breath, denies wheezing Cardiovascular denies chest pain, denies palpitations, denies syncope Gastrointestinal denies abdominal pain, denies diarrhea, denies vomiting Genitourinary denies: dysuria, frequency, hesitancy, hematuria. Musculoskeletal denies back pain, denies joint pain, denies joint swelling, denies neck pain Skin denies rash Psychiatric/Neurological denies headache, denies seizure Physical Exam Vital Signs Vital Signs Date Time Temp Pulse Resp B/P Pulse O2 O2 Flow FiO2 Ox Delivery Rate 07/23 1726 74 22 148/80 97 07/23 1516 72 22 155/85 97 07/23 1404 75 22 147/79 95 07/23 1259 98.4 97 22 152/84 94 - WBC >12,000 or <4,000 or 10% bands? 2 or more SIRS Criteria Met? B/P:148/80 MAP:106 Creatinine >2.0? UA output<0.5ml/kg/hr for 2 hrs? Platelet count >100,000? Lactate >2.0mmol/1? INR >1.2 or PTT > than 60 sec? Evidence of Organ Dysfunction? Provider documented clinical suspician of infection? N Sepsis Criteria Count: 2 Sepsis Risk: Possible Sepsis Risk General Appearance no apparent distress Eye Exam - bilateral eye PERRL, bilateral eye EOMI Ear, Nose, Throat normal ENT inspection Neck supple Respiratory Status No: respiratory distress. Lung Sounds bilateral: lungs clear. Cardiovascular regular rate/rhythm, systolic murmur Peripheral Pulses Pulses normal Yes Gastrointestinal soft Extremities normal inspection Strength 4 Upper Ext (L), 4 Upper Ext (R), 4 Lower Ext (L), 4 Lower Ext (R) Neurologic alert, care management assistant II-XII nml as tested, no motor/sensory deficits Reflexes Reflexes normal No Mental status normal mood/affect Skin intact Medical Decision Making LABS/Meds/Orders Pt receiving controlled substance in ED? No Results/Orders Laboratory Tests 07/23/17 1720: Sodium 140, Potassium 4.8, Chloride 106, Carbon Dioxide 25, BUN 28 H, Creatinine 1.8 H, Estimated Creat Clear 26 L, Estimated GFR (MDRD) 27 L, Glucose 117 H, Calcium 9.2, Total Bilirubin 0.8, AST 28, ALT 24, Alkaline Phosphatase 117 H, Troponin I < 0.02, Total Protein 7.5, Albumin 3.4, Globulin 4.1 H, Albumin/Globulin Ratio 0.8 L, WBC 7.2, RBC 4.11 L, Hgb 12.6, Hct 38.3, MCV 93.0, RDW 13.6, Plt Count 263, MPV 7.0 L, Gran % 68.1, Gran # 4.9, Lymphocytes % 22.9, Monocytes % 6.1, Eosinophils % 2.4, Basophils % 0.5, Lymphocytes # 1.7, Monocytes # 0.4, Eosinophils # 0.2, Basophils # 0.0, PUBS MCHC 33.0, MCH 30.7, Influenza Type A Ag NOT DETECTED, Influenza Type B Ag NOT DETECTED Current Medication Orders Sig/Andrés Start time Last Medication Dose Route Stop Time Status Admin Sodium Chloride 10 ML PRN PRN 07/23 1715 AC IV 07/24 1711 Orders Procedure Date/time Status IV SALINE LOCK 07/23 1711 Active TROPONIN I 07/23 1711 Complete INFLUENZA A&B ANTIGENS 07/23 1711 Complete COMPLETE METABOLIC PANEL 07/23 1711 Complete CBC WITH AUTO DIFF 07/23 1711 Complete XRAY/CT/US XRAY/CT/US XRAY chest XR interpretation by reviewed by me Xray Results normal/NAD Departure Departure Time of Disposition 185 Disposition DC Home or Self Care(routine) Clinical Impression Primary Impression: Bronchitis Condition STABLE Referrals Steve Pereira MD discussed with dr pereira Patient Instructions DI for Cough -- Adult Additional Instructions call pcp for follow up Discharge Counseling Counseled pt/family regarding diagnosis, test results, medications/RX, follow up needs ED Critical Care Critical Care No at [phone]
--- NOTE | 2017-07-23 17:32 | RADIOLOGY REPORT PS360 ---
CHEST(2 VIEWS-NOT PORTABLE) HISTORY: COUGH ORDERING PHYSICIAN: Diane Jeff MD PATIENT AGE: 82 years COMPARISON: 10/08/2016 FINDINGS: Mild cardiomegaly without failure. No lobar consolidation or collapse. There are old right-sided rib fractures. Surgical clips are present in the left axilla from prior left breast surgery. No acute bony findings. IMPRESSION: No change with no acute finding.
[2017-07-23 17:34] LABS: HEMOGLOBIN 12.6 g/dL (12.2-16.2); LYMPH # 1.7 K/mm3 (0.7-4.5); LYMPH % 22.9 % (10-50.0)
[2017-07-23 17:49] LABS: BUN 28 mg/dL (7-18)
[2017-07-23 18:01] LABS: GFR (ESTIMATED) 27 ML/MIN (59-)
[2017-07-23 19:54] VITALS: BP 169/102
== END 2017-07-23 19:55 | disposition home or self-care (01) ==
LOC: ER 12:54
PROVIDERS: Emergency Medicine
DX: J20.9 Acute bronchitis, unspecified (principal); J45.909 Unspecified asthma, uncomplicated; I10 Essential (primary) hypertension; Z88.0 Allergy status to penicillin